=== PATIENT | male | born 1985 | race Caucasian/White ===

== ENCOUNTER 2016-09-03 13:06 | Emergency (ER) | payer OTHER ==
[~2016-09-03] VITALS: Ht 180.3 cm; Wt 85.0 kg
[2016-09-03 13:08] VITALS: BP 129/61; PULSE 67; RESP 17; TEMP 97.9; O2SAT 96
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
[2016-09-03] MEDS ORDERED: IBUPROFEN 800 MG TAB PO ONE (14:30)
[2016-09-03] MEDS ORDERED: ROBA500T PO (15:01)
[2016-09-03] MEDS ORDERED: IBUP800T23 PO (15:01)
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
== END 2016-09-03 15:48 | disposition home or self-care (01) ==
LOC: NETRI 13:06
DX: S50.12XA Contusion of left forearm, initial encounter (principal); S60.222A Contusion of left hand, initial encounter; R51 Headache; V89.2XXA Person injured in unspecified motor-vehicle accident, traffic, initial encounter
CPT/HCPCS: 73090; 73130; 99283